=== PATIENT | male | born 1975 | race Caucasian/White ===

== ENCOUNTER 2017-06-16 19:07 | Emergency (ER) | payer MEDICAID, OTHER ==
[2017-06-16 19:07] VITALS: BMI 22.4
[2017-06-16 19:15] VITALS: BP 127/72; PULSE 86; RESP 19; TEMP 98.6; O2SAT 96
--- NOTE | 2017-06-16 19:26 | ED PDOC ---
Arrival/HPI - General Chief Complaint: Abnormal Skin Integrity Time Seen by Provider: 06/16/17 19:09 Historian: Patient - History of Present Illness Narrative History of Present Illness (Text): 06/16/17 19:23 41 y/o male, pmh including cardiac murmur, nkda, c/o hypopigmentation on the skin around the hip and neck region for over 1 year with no pain or discomfort. Pt. stated that he just want to have initially evaluated, no weight loss, no fever or chills, no headache or night sweat, no dizziness, no change in vision, no other medical or psychological complaints. Past Medical History - Provider Review Nursing Documentation Reviewed: Yes - Past History Past History: No Previous - Infectious Disease Hx of Infectious Diseases: None - Cardiac Hx Cardiac Disorders: Yes Hx Hypertension: No Other/Comment: unknown heart condition that pt reports "i will need a vlave replacement" - Pulmonary Hx Bronchitis: No - Neurological Hx Alzheimer's Disease: No - Psychiatric Hx Substance Use: No - Anesthesia Hx Anesthesia: No Family/Social History - Physician Review Nursing Documentation Reviewed: Yes Family/Social History: Unknown Family HX Smoking Status: Heavy Smoker > 10 Cigarettes Daily Hx Alcohol Use: No Hx Substance Use: No Allergies/Home Meds Allergies/Adverse Reactions: Allergies No Known Allergies Allergy (Verified 06/16/17 19:11) Review of Systems - Review of Systems Constitutional: absent: Fatigue, Fevers Eyes: absent: Vision Changes ENT: absent: Hearing Changes Respiratory: absent: SOB, Cough Cardiovascular: absent: Chest Pain Gastrointestinal: absent: Abdominal Pain, Nausea, Vomiting Skin: Rash. absent: Pruritis, Skin Lesions, Laceration, Abscess, Ulcer, Cellulitis Neurological: absent: Headache, Dizziness, Focal Weakness Physical Exam Vital Signs Reviewed: Yes Vital Signs Temp Pulse Resp BP Pulse Ox 06/16/17 19:14 98.6 F 86 19 127/72 96 Temperature: Afebrile Blood Pressure: Normal Pulse: Regular Respiratory Rate: Normal Appearance: Positive for: Well-Appearing, Non-Toxic, Comfortable Pain Distress: None Mental Status: Positive for: Alert and Oriented X 3 - Systems Exam Head: Present: Atraumatic, Normocephalic Pupils: Present: PERRL Extroacular Muscles: Present: EOMI Conjunctiva: Present: Normal Mouth: Present: Moist Mucous Membranes Neck: Present: Normal Range of Motion Respiratory/Chest: Present: Clear to Auscultation, Good Air Exchange. No: Respiratory Distress, Accessory Muscle Use Cardiovascular: Present: Regular Rate and Rhythm, Normal S1, S2. No: Murmurs Abdomen: Present: Normal Bowel Sounds. No: Tenderness, Distention, Peritoneal Signs Back: Present: Normal Inspection Upper Extremity: Present: Normal Inspection. No: Cyanosis, Edema Lower Extremity: Present: Normal Inspection. No: Edema Neurological: Present: GCS=15, Speech Normal, Motor Func Grossly Intact, Gait Normal, Memory Normal Skin: Present: Warm, Dry, Rashes (neck/hip region visible approx. 1cm hypopigmentation flat rash appear to be vitiligo with no erythematous, no regional lymphenapathy), Normal Color Psychiatric: Present: Alert, Oriented x 3, Normal Insight, Normal Concentration Medical Decision Making ED Course and Treatment: 06/16/17 19:25 -Clinically appear to be vitiligo, will try topical steroid and advised to follow up with the special education superintendent. -Discharge home with triamcinolone topical, follow up with your own pmd and special education superintendent within 2 days, return to the ER for any new or worsening signs or symptoms. - PA / CAP SIZER / Resident Statement / has reviewed & agrees with the documentation as recorded. Disposition/Present on Arrival - Present on Arrival Any Indicators Present on Arrival: No History of DVT/PE: No History of Uncontrolled Diabetes: No Urinary Catheter: No History of Decub. Ulcer: No History Surgical Site Infection Following: None - Disposition Have Diagnosis and Disposition been Completed?: Yes Diagnosis: Vitiligo Disposition: HOME/ ROUTINE Disposition Time: 19:27 Patient Plan: Discharge Condition: GOOD Additional Instructions: -Discharge home with triamcinolone topical, follow up with your own pmd and special education superintendent within 2 days, return to the ER for any new or worsening signs or symptoms. Prescriptions: Triamcinolone 0.025 % [Triamcinolone 0.025 % Cream] 1 appl TOP BID #30 g Referrals: Tova Powell MD [Staff Provider] - Follow up with primary Forms: WORK NOTE
== END 2017-06-16 19:50 | disposition home or self-care (01) ==
LOC: ED 19:07
DX: L80 Vitiligo (principal); F17.210 Nicotine dependence, cigarettes, uncomplicated